=== PATIENT | female | born 1940 | race Caucasian/White ===

== ENCOUNTER 2018-05-22 00:10 | Emergency (ER) | payer OTHER ==
--- OUTSIDE RECORDS SUMMARY | 2018-05-22 00:13 | XMS REPORT | Clinical Summary ---
:1940 Author Organization [facility] Address [address] [place] [address] Care Team Providers Name Role Phone Percy Del Rosario Primary Care Provider Allergies Active Allergy Reactions Severity Noted Date Comments Latex 09/12/2017 Breakout with blisters Sulfa (Sulfonamide Antibiotics) 09/12/2017 Break out with blisters Hydrocodone-Acetaminophen 09/12/2017 Heart quit beating Medications Medication Sig Dispensed Refills Start Date End Date Status clopidogrel (PLAVIX) 75 Take 75 mg by 0 Active mg tablet mouth daily. aspirin 81 MG EC tablet Take 81 mg by 0 Active mouth daily. lisinopril Take 1.25 mg by 0 Active (PRINIVIL,ZESTRIL) 5 MG mouth daily . tablet Active Problems Not on file Encounters Date Type Specialty Care Team Description 09/12/2017 [facility] Carin, Breast microcalcifications Encounter Percy Tellez 09/06/2017 Outside Orders Central Scheduling Carin, Breast microcalcifications Percy Tellez (Primary Dx) after 05/21/2017 Social History Tobacco Use Types Packs/Day Years Used Date Former Smoker 20 Smokeless Tobacco: Never Used Alcohol Use Drinks/Week oz/Week Comments Yes 2 Glasses of wine 1.2 Sex Assigned at Date Recorded Not on file Job Start Date Occupation Industry Not on file Not on file Not on file Travel History Travel Start Travel End No recent travel history available. Last Filed Vital Signs Vital Sign Reading Time Taken Blood Pressure 148/74 09/12/2017 11:52 AM [facility] Pulse 69 09/12/2017 11:52 AM [facility] Temperature 36.2 C (97.1 F) 09/12/2017 10:19 AM [facility] Respiratory Rate 19 09/12/2017 11:52 AM [facility] Oxygen Saturation 99% 09/12/2017 10:19 AM [facility] Inhaled Oxygen Concentration - - Weight 72.6 kg (160 lb) 09/12/2017 10:19 AM [facility] Height 172.7 cm (5' 8") 09/12/2017 10:19 AM [facility] Body Mass Index 24.33 09/12/2017 10:19 AM [facility] Plan of Treatment Not on file Procedures Procedure Name Priority Date/Time Associated Diagnosis Comments TISSUE EXAM AP Routine 09/12/2017 Results for 1:35 PM [facility] this procedure are in the results section. MM BREAST SPECIMEN AURELIANO 09/12/2017 Results for RADIOGRAPH LEFT 11:42 AM [facility] this procedure are in the results section. MM, DIGITAL, Routine 09/12/2017 Results for UNILATERAL, CONFER 11:42 AM [facility] this procedure KATIUSKA, MAMMO, LEFT are in the results section. MM STEREOTACTIC Routine 09/12/2017 Breast Results for BREAST BIOPSY - 11:40 AM [facility] microcalcifications this procedure LEFT are in the results section. after 05/21/2017 Results Tissue Exam (09/12/2017 1:35 PM [facility]) Case Report Surgical Pathology Report Case: [id number] [facility] Authorizing Provider:Jose Mcgraw MDCollected: 09/12/2017 1335 [facility] Ordering [facility]'s CenterReceived: 09/12/2017 [facility] Pathologist: Saumya Garcia MD Specimen:Breast, Left, LEFT LOWER MEDIAL BREAST CALCIFICATIONS DIAGNOSIS A. BREAST, LEFT, LOWER MEDIAL CALCIFICATIONS, STEREOTACTIC BIOPSY: [facility] - BENIGN BREAST TISSUE WITH FAT NECROSIS [facility] - MICROCALCIFICATIONS ASSOCIATED WITH FAT NECROSIS IDENTIFIED Signing Pathologist Direct Phone Line: [phone] COMMENT Multiple levels (23 levels) [facility] have been evaluated to find [facility] calcifications. In the sections examined, no atypical hyperplasia or carcinoma is identified. CPT Code(s) 54103 x1 [facility] CLINICAL HISTORY Consistent with fat necrosis [facility] SPECIMEN SOURCE Left lower medial breast [facility] calcifications [facility] GROSS DESCRIPTION The specimen is received in a formalin-filled container and labeled with the patient's information and labeled "left lower medial breast calcifications" and consists of two yellow-white core breast biopsies measuring 1.5 and 2 cm in length. [facility] Ink code: blue. The specimen is entirely submitted A1. CG/pl MICROSCOPIC DESCRIPTION Performed. [facility] Specimen Tissue - Breast, Left Performing Organization Address City/State/Zipcode Phone Number [facility] [address] [place] [address] [phone] CENTER MM Breast Specimen Radiograph Left (09/12/2017 11:42 AM [facility]) Narrative Performed At [facility] #[id number] - MM, MAMMO, SPECIMEN, RADIOGRAPH, LEFT SPECIMEN: 09/12/2017 PROCEDURE DESCRIPTION: The specimen radiograph includes the targeted calcifications. Comparison is made to exams dated:09/12/2017 mammogram and 09/12/2017 stereotactic biopsy - [facility]. The specimen radiograph was performed on a separate mammography unit. IMPRESSION: SPECIMEN The specimen radiograph includes the targeted calcifications. The exam was reviewed by a staff physician. Jose Doshi M.D. pth,ac/:09/12/2017 12:44:55 Attending Technologist: Ngozi Marr RT(R)(M), [facility] Blender Conveyor Operator: Viky Cooley RT(R)(M), [facility] [id number] Procedure Note Interface, External Ris In - 09/12/2017 1:44 PM [facility] #[id number] - MM, MAMMO, SPECIMEN, RADIOGRAPH, LEFT SPECIMEN: 09/12/2017 PROCEDURE DESCRIPTION: The specimen radiograph includes the targeted calcifications. Comparison is made to exams dated: 09/12/2017 mammogram and 09/12/2017 stereotactic biopsy - [facility]. The specimen radiograph was performed on a separate mammography unit. IMPRESSION: SPECIMEN The specimen radiograph includes the targeted calcifications. The exam was reviewed by a staff physician. Jose Doshi M.D. [facility],ac/:09/12/2017 12:44:55 Attending Technologist: Ngozi BUSTOS)(Ariadna), [facility] Blender Conveyor Operator: Viky BUSTOS)(Ariadna), [facility] [id number] Performing Organization Address City/State/Zipcode Phone Number [facility] MM, DIGITAL, UNILATERAL, CONFER KATIUSKA, MAMMO, LEFT (09/12/2017 11:42 AM [facility]) Narrative Performed At N#: [id number] [facility] #[id number] - MM, DIGITAL, UNILATERAL, CONFER KATIUSKA, MAMMO, LEFT INCLUDING CAD UNILATERAL LEFT DIGITAL PROBLEM SOLVING MAMMOGRAM POST-PROCEDURE IMAGING FOR MARKER PLACEMENT: 09/12/2017 Comparison is made to exam dated:09/12/2017 stereotactic biopsy - [facility]. The tissue of the left breast is scattered fibroglandular tissue. The post procedure mammogram was performed on a separate mammography unit. A clip is placed at the biopsy site. IMPRESSION: POST PROCEDURE MAMMOGRAM FOR MARKER PLACEMENT Await pathology results. The exam was reviewed by a staff physician. Jose Doshi M.D. [facility],ac/:09/12/2017 12:44:16 Attending Technologist: Ngozi BUSTOS)(Ariadna), [facility] Blender Conveyor Operator: Viky BUSTOS)(Ariadna), [facility] Mammogram BI-RADS: Post-procedure mammogram for marker placement [id number] Procedure Note Interface, External Ris In - 09/12/2017 1:44 PM [facility] #[id number] - MM, DIGITAL, UNILATERAL, CONFER KATIUSKA, MAMMO, LEFT INCLUDING CAD UNILATERAL LEFT DIGITAL PROBLEM SOLVING MAMMOGRAM POST-PROCEDURE IMAGING FOR MARKER PLACEMENT: 09/12/2017 Comparison is made to exam dated: 09/12/2017 stereotactic biopsy - [facility]. The tissue of the left breast is scattered fibroglandular tissue. The post procedure mammogram was performed on a separate mammography unit. A clip is placed at the biopsy site. IMPRESSION: POST PROCEDURE MAMMOGRAM FOR MARKER PLACEMENT Await pathology results. The exam was reviewed by a staff physician. Jose Doshi M.D. [facility],ac/:09/12/2017 12:44:16 Attending Technologist: Ngozi Marr RT(R)(M), [facility] Blender Conveyor Operator: Viky Cooley RT(R)(M), [facility] Mammogram BI-RADS: Post-procedure mammogram for marker placement [id number] Performing Organization Address City/State/Zipcode Phone Number [facility] MM Stereotactic breast biopsy left (09/12/2017 11:40 AM [facility]) Narrative Performed At Addendum Begins [facility] AMENDMENT: 09/18/2017 Jose Mcgraw M.D. Pathology results are now available and demonstrate fat necrosis. This is concordant with the imaging findings. Addendum Ends #[id number] - MM, STEREOTACTIC BIOPSY, BREAST, LEFT STEREOTACTIC GUIDED BIOPSY LEFT BREAST USING VACUUM DEVICE WITH MARKING DEVICE INSERTED AND POST DIGITAL MAMMOGRAPHIC IMAGING AND RADIOGRAPHIC SPECIMEN IMAGIN09/12/2017 CLINICAL: Stereotactic biopsy of left breast calcifications. PATIENT CONSENT: The procedure, risks, benefits and alternatives were discussed with the patient. Informed consent was obtained. Comparison is made to exams dated:09/12/2017 specimen and 09/12/2017 mammogram - [facility]. A stereotactic guided biopsy was performed for the area of calcifications located in the left breast at 7 o'clock anterior depth.This was described on the previous mammography report.The skin was prepped in the usual manner.Local anesthetic was administered to the access site.A skin gayle was made in the breast. The abnormality was approached from the medial aspect using a prone table.A 9 gauge biopsy needle was placed adjacent to the abnormality under computer guidance and confirmatory stereotactic mammography images were obtained to document needle placement.Once the needle was documented to be in the correct location, two cores were obtained using the [employer] system.The patient received additional local anesthetic during the procedure.A bar shaped clip was inserted into the biopsy cavity.Post procedure digital mammographic imaging was obtained.The specimens were sent to the laboratory for pathological analysis. Dr. Mcgraw was present for the entire procedure. IMPRESSION: STEREOTACTIC GUIDED BIOPSY Stereotactic guided biopsy of the area of calcifications in the left breast at 7 o'clock anterior depth was successful with no apparent post procedure complications.The imaged cores includes the calcifications.Waiting for pathology results. The procedure was reviewed by a staff physician. Jose Doshi M.D. pth,ac/:09/12/2017 12:50:37 Attending Technologist: Ngozi Marr RT(R)(M), [facility] Blender Conveyor Operator: Viky Cooley RT(R)(M), [facility] [id number] Procedure Note Interface, External Ris In - 09/19/2017 7:25 AM CDT Addendum Begins AMENDMENT: 09/18/2017 Jose Mcgraw M.D. Pathology results are now available and demonstrate fat necrosis. This is concordant with the imaging findings. Addendum Ends #[id number] - MM, STEREOTACTIC BIOPSY, BREAST, LEFT STEREOTACTIC GUIDED BIOPSY LEFT BREAST USING VACUUM DEVICE WITH MARKING DEVICE INSERTED AND POST DIGITAL MAMMOGRAPHIC IMAGING AND RADIOGRAPHIC SPECIMEN IMAGIN09/12/2017 CLINICAL: Stereotactic biopsy of left breast calcifications. PATIENT CONSENT: The procedure, risks, benefits and alternatives were discussed with the patient. Informed consent was obtained. Comparison is made to exams dated: 09/12/2017 specimen and 09/12/2017 mammogram - [facility]. A stereotactic guided biopsy was performed for the area of calcifications located in the left breast at 7 o'clock anterior depth. This was described on the previous mammography report. The skin was prepped in the usual manner. Local anesthetic was administered to the access site. A skin gayle was made in the breast. The abnormality was approached from the medial aspect using a prone table. A 9 gauge biopsy needle was placed adjacent to the abnormality under computer guidance and confirmatory stereotactic mammography images were obtained to document needle placement. Once the needle was documented to be in the correct location, two cores were obtained using the [employer] system. The patient received additional local anesthetic during the procedure. A bar shaped clip was inserted into the biopsy cavity. Post procedure digital mammographic imaging was obtained. The specimens were sent to the laboratory for pathological analysis. Dr. Mcgraw was present for the entire procedure. IMPRESSION: STEREOTACTIC GUIDED BIOPSY Stereotactic guided biopsy of the area of calcifications in the left breast at 7 o'clock anterior depth was successful with no apparent post procedure complications. The imaged cores includes the calcifications. Waiting for pathology results. The procedure was reviewed by a staff physician. Jose Doshi M.D. [facility],ac/:09/12/2017 12:50:37 Attending Technologist: Ngozi SESAY(R)(M), [facility] Blender Conveyor Operator: Viky SESAY(R)(M), [facility] [id number] Performing Organization Address City/State/Zipcode Phone Number [facility] after 05/21/2017 Insurance Payer Benefit Plan / Group Subscriber ID Type Phone Address [facility] xxxxxxxxx Maps Contracted
--- OUTSIDE RECORDS SUMMARY | 2018-05-22 00:16 | XMS REPORT | Continuity of Care Document ---
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 OPERATOR, Stop date: 07/20/16 20:07:00 CSTNotes: (Same as: Zofran) MEDICATION WASTE Product Size: 4 mg Product Wasted: ___ mg Flexeril 5 mg, 1 tab, No Longer [place] Route: PO, Drug Active 2016 Medical form: TAB, TID, Center Dosing Weight 71.364, kg, PRN Spasm, Start date: 07/20/16 12:12:00 LASTEX OPERATOR, Duration: 30 day, Stop date: 08/19/16 12:11:00 CSTNotes: Same as Flexeril remove patch 2 patch, Route: No Longer [facility] TOP, Daily, Drug Active 2016 Medical form: ERFILM, Center Start date: 07/20/16 11:00:00 LASTEX OPERATOR, Stop date: 08/18/16 9:00:00 CSTNotes: Remove patch 12 hours after application each day. Sodium Chloride 1 spray, Route: No Longer [place] 0.111 MEQ/ML Each Affected 2016 Medical Nasal [place] Nostril, PRN, [place] [[place] brand of Drug form: SOLN, sodium PRN Nasal chloride] Congestion, Start date: 07/20/16 9:06:00 LASTEX OPERATOR, Duration: 30 day, Stop date: 08/19/16 9:05:00 CSTNotes: (Same as: [place], Deep Sea Nasal [place]). Docusate 100 mg, 10 mL, No Longer [place] Route: PO, Drug Active 2016 Medical form: SOLN, Center Q12H, Dosing Weight 71.364, kg, Start date: 07/20/16 9:00:00 LASTEX OPERATOR, Stop date: 08/18/16 21:00:00 CSTNotes: (Same as: Colace) Lidocaine 1 patch, Route: No Longer [place] Hydrochloride TOP, Bedtime, Active 2016 Medical 0.05 MG/MG Drug form: FILM, Center Transdermal Start date: Patch 07/19/16 [Lidoderm] 23:00:00 LASTEX OPERATOR, Stop date: 08/17/16 21:00:00 CSTNotes: (Same as: Lidoderm) "Remove old patch before application of new patch" Enoxaparin 30 mg, 0.3 mL, No Longer [facility] Route: SUB-Q, Active 2016 Medical Drug form: INJ, Center Q12H, Dosing Weight 71.364, kg, Start date: 07/19/16 22:23:00 LASTEX OPERATOR, Duration: 30 day, Stop date: 08/18/16 16:00:00 CSTNotes: (Same as: Lovenox) Sodium Chloride 500 mL, Route: No Longer [place] 0.154 MEQ/ML IV, ONCE, Dosing Active 2016 Medical Injectable Weight 71.364 Center Solution kg, Start date: 07/19/16 22:05:00 LASTEX OPERATOR, Stop date: 07/19/16 22:05:00 LASTEX OPERATOR Isolyte S (PH 1,000 mL, Rate: No Longer [place] 7.4) 1000 mL 75 ml/hr, Infuse Active 2017 Medical 1,000 mL over: 13.3 hr, Center Route: IV, Dosing Weight 71.364 kg, Total Volume: 1,000, Start date: 07/19/16 21:58:00 LASTEX OPERATOR, Duration: 30 day, Stop date: 08/18/16 21:57:00 CSTNotes: (Same as: Isolyte S PH 7.4) Oxycodone 5 mg, 1 tab, No Longer [place] Hydrochloride 5 Route: PO, Drug Active 2016 Medical MG Oral Tablet form: TAB, Q4H, Center Dosing Weight 71.364, kg, PRN Pain Score 4-6, Start date: 07/19/16 21:56:00 LASTEX OPERATOR, Duration: 30 day, Stop date: 08/18/16 21:55:00 CSTNotes: (Same as: Roxicodone) Tramadol 100 mg, 2 tab, No Longer [place] Route: PO, Drug Active 2016 Medical form: TAB, Q6H, Center Dosing Weight 71.364, kg, Priority: NOW, Start date: 07/19/16 21:56:00 LASTEX OPERATOR, Duration: 30 day, Stop date: 08/18/16 18:00:00 CSTNotes: Not to exceed 400mg/day. (Same As: Ultram) celecoxib 200 mg, 1 cap, No Longer [place] Route: PO, Drug Active 2016 Medical form: CAP, Q12H, Center Dosing Weight 71.364, kg, Priority: NOW, Start date: 07/19/16 21:56:00 LASTEX OPERATOR, Duration: 48 hr, Stop date: 07/21/16 21:00:00 CSTNotes: NSAID. Please check indication. Not for seizure. (Same As: CeleBREX) pregabalin 100 mg, 1 cap, No Longer [place] Route: PO, Drug Active 2016 Medical form: CAP, Q8H, Center Dosing Weight 71.364, kg, Priority: NOW, Start date: 07/19/16 21:56:00 LASTEX OPERATOR, Duration: 48 hr, Stop date: 07/21/16 16:00:00 CSTNotes: (Same as: Lyrica) Acetaminophen 1,000 mg, 2 tab, No Longer [facility] Route: PO, Drug Active 2016 Medical form: TAB, Q6H, Center Dosing Weight 71.364, kg, Priority: NOW, Start date: 07/19/16 21:56:00 LASTEX OPERATOR, Duration: 30 day, Stop date: 08/18/16 18:00:00 CSTNotes: Max acetaminophen 4000 mg/day (4 gm/day). (Same as: Tylenol Extra Strength) Vitamin D2 50,000 IntlUnit, Inactive [facility] 1 cap, Route: 2017 Medical PO, Drug form: Center CAP, ONCE, Dosing Weight 71.364, kg, Priority: Routine, Start date: 07/19/16 21:27:00 LASTEX OPERATOR, Stop date: 07/19/16 21:27:00 CSTNotes: (Same as: Vitamin D) "Do Not Crush" Morphine 4 mg, Route: Inactive [facility] IVP, Drug form: 2017 Medical INJ, ONCE, Center Dosing Weight 71.364, kg, Priority: STAT, Start date: 07/19/16 20:33:00 LASTEX OPERATOR, Stop date: 07/19/16 20:33:00 LASTEX OPERATOR Zofran 4 mg, 2 mL, Inactive [facility] Route: IVP, Drug 2016 Medical form: INJ, ONCE, Center Dosing Weight 71.364, kg, Priority: STAT, Start date: 07/19/16 19:42:00 LASTEX OPERATOR, Stop date: 07/19/16 19:42:00 CSTNotes: (Same as: Zofran) MEDICATION WASTE Product Size: 4 mg Product Wasted: ___ mg Propofol 30 mg, Route: Inactive [facility] IVP, ONCE, 2017 Medical Dosing Weight Center 71.364, kg, Priority: STAT, Start date: 07/19/16 18:39:00 LASTEX OPERATOR, Stop date: 07/19/16 18:39:00 LASTEX OPERATOR Ketamine 30 mg, Route: Inactive [facility] IV, ONCE, Dosing 2017 Medical Weight 71.364, Center kg, Start date: 07/19/16 18:39:00 LASTEX OPERATOR, Stop date: 07/19/16 18:39:00 LASTEX OPERATOR Fentanyl 50 microgram, Inactive [facility] Route: IVP, 2017 Medical ONCE, Dosing Center Weight 71.364, kg, Priority: STAT, Start date: 07/19/16 15:31:00 LASTEX OPERATOR, Stop date: 07/19/16 15:31:00 LASTEX OPERATOR Morphine 4 mg, Route: Inactive [facility] IVP, ONCE, 2017 Medical Dosing Weight Center 71.364, kg, Priority: STAT, Start date: 07/19/16 15:28:00 LASTEX OPERATOR, Stop date: 07/19/16 15:28:00 LASTEX OPERATOR Saline Flush 10 mL, Route: No Longer [facility] 0.9% MISC, Drug Form: Active 2017 Medical INJ, kg, PRN, Center PRN Line Flush, Start date: 07/19/16 13:31:00 LASTEX OPERATOR, Duration: 30 day, Stop date: 08/18/16 13:30:00 CSTNotes: (Same as: BD Posiflush) iodixanol 100 mL, Route: Inactive [facility] IVP, Drug Form: 2017 Medical SOLN, kg, Center ONCALL, STAT, Start date: 07/19/16 12:58:00 LASTEX OPERATOR, Duration: 1 doses or times, Dose=2.2ml/kg, Max [id number] -- "To be infused by Radiology Staff ONLY" Fentanyl 50 microgram, Inactive [facility] Route: IVP, 2017 Medical ONCE, kg, Center Priority: STAT, Start date: 07/19/16 12:55:00 LASTEX OPERATOR, Stop date: 07/19/16 12:55:00 LASTEX OPERATOR Allergies, Adverse Reactions, Alerts Substance Category Reaction Severity Reaction Status Date Comments Source type Reported sulfa Assertion Drug Active Ortho drugs allergy and Spine Tylenol Assertion Propensity Active patient Ortho with to adverse states she and Spine Codeine<cardoso reactions has jitters p>1</sup> to drug with this med Vicodin<cardoso Assertion Moderate Drug Active patient [facility] p>2</sup> allergy states and Spine heart quit beating when she took it NSAIDs<sup Assertion Propensity Active Avoids due [facility] >3</sup> to adverse to acid and Spine reactions reflux. to drug Latex<sup> Assertion Allergy to Active per [facility] 4</sup> substance patient, and Spine blisters, swells up contrast Assertion Drug Active Blisters [facility] media allergy and Spine (iodine-ba sed)<sup>5 </sup> traMADol<s Assertion Drug Active hallucinati [facility] up>6</sup> allergy ons and Spine oxyCODONE< Assertion Drug Active patient [facility] sup>7</sup allergy states and Spine > heart quit beating when she took it HYDROcodon Assertion Drug Active patient Ortho e<sup>8</s allergy states and Spine up> heart quit beating when she took it contrast Assertion Drug Active [facility] media allergy [place] (iodine-ba sed) HYDROcodon Assertion Drug Active patient e<sup>1</s allergy states [place] up> heart quit beating when she took it Latex<sup> Assertion Allergy to Active per MH 2</sup> substance patient, [place] blisters, swells up oxyCODONE< Assertion Drug Active patient [facility] sup>3</sup allergy states [place] > heart quit beating when she took it Tylenol Assertion Propensity Active patient with to adverse states she [place] Codeine<cardoso reactions has jitters p>4</sup> to drug with this med Vicodin<cardoso Assertion Moderate Drug Active patient p>5</sup> allergy states [place] heart quit beating when she took it Immunizations Immunization Date Given Site Status Last Updated Comments Source Results Order Name Results Value Reference Date Interpretation Comments Source Range Carotid Carotid Clinical Indication: - TIA 12/09 - artery artery /2016 - [facility] Doppler Doppler Comparison: None bilat US bilat US Read by: Frances Kelly DO Dictated Date/time: 12/10/16 10:25 TECHNIQUE: Electronically Signed by: Frances Kelly DO 12/10/16 10:30 FINAL REPORT Redd-scale, color Doppler and spectral Doppler of the carotid arteries was performed. Any reported ICA stenoses indirectly reference the distal internal carotid diameter as the denominator for the sten osis measurement, utilizing consensus panel criteria. FINDINGS: RIGHT: Mild atherosclerotic plaque at the carotid bulb ICA PSV 111 cm/sec CCA PSV 85.9 cm/sec ICA/CCA ratio 0.77 Vertebral flow is antegrade. External carotid artery is patent. LEFT: No significant plaque ICA PSV 97.5 cm/sec CCA PSV 108 cm/sec ICA/CCA ratio 0.85 Vertebral flow is antegrade. External carotid artery is patent. IMPRESSION: RIGHT: ICA stenosis <50 % by velocity criteria. LEFT: ICA stenosis <50 % by velocity criteria. Consensus panel Doppler US criteria for diagnosis of ICA stenosis: Stenosis (%) ICA PSV (cm/sec) ICA/CCA ratio -- <50 <125 <2.0 50-69 125-230 2.0-4.0 >70 but less than >230 >4.0 near occlusion Near occlusion High, low, or Variable undetectable SL: [id number] Brain wo Brain wo Patient Name: CLARY HERNÁNDEZ 12/09 - contrast contrast MRA /2016 - [facility] MRA : 1940; Age: 76 years y/o Female MR: [id number] Read by: Cheo Sánchez MD Dictated Date/time: 12/09/16 16:50 Electronically Signed by: Cheo Sánchez MD 12/09/16 16:56 FINAL REPORT Study: Brain wo contrast MRA 12/09/2016 11:43 AM CDT Ordering Physician: Val Damico Clinical Indication: generalized weakness - Right HP; Comparison: None Technique: Magnetic resonance angiography of the [place] of [place] was performed without contrast. 3D reconstructed images were created. FINDINGS: The petrous, cavernous, ophthalmic and supraclinoid portions of the bilateral internal carotid arteries have normal caliber. The A1 and A2 segments of the bilateral anterior cerebral arteries are unremarkable. The M1 and M2 segments of bilateral middle cerebral arteries and branches have normal caliber. The anterior communicating artery is unremarkable. Bilateral vertebral arteries, basilar artery, and posterior cerebral arteries are unremarkable. Posterior communicating arteries are unremarkable. There is no aneurysm, vascular malformation, or significant atherosclerotic disease. IMPRESSION: Unremarkable MR angiography of the [place] of [place]. SL: [id number] Neck wo Neck wo Patient Name: CLARY HERNÁNDEZ 12/09 - contrast contrast MRA /2016 - [facility] MRA : 1940; Age: 76 years y/o Female MR: [id number] Read by: Cheo Sánchez MD Dictated Date/time: 12/09/16 16:42 Electronically Signed by: Cheo Sánchez MD 12/09/16 16:49 FINAL REPORT Study: Neck wo contrast MRA 12/09/2016 11:43 AM CDT Ordering Physician: Val Damico Clinical Indication: generalized weakness - Right HP; Comparison: None Technique: Magnetic resonance angiography of the neck was performed without IV contrast and with standard technique. MIP and volume rendering post- processed images were obtained. 3D reconstructed images were performed. Contrast: None FINDINGS: The origins of the right brachiocephalic artery, right common carotid artery, right subclavian artery, right vertebral artery, left common carotid artery, left subclavian artery and left vertebral artery are widely patent. Bilateral common carotid arteries are widely patent. Bilateral internal carotid arteries and carotid bulb regions are patent without significant stenosis by NASCET criteria. Bilateral external carotid arteries are patent. Bilateral vertebral arteries are widely patent without stenosis. The visualized intracranial segments of the vertebral arteries are widely patent. The source images show no evidence of carotid or vertebral artery dissection. Any reported ICA stenoses directly reference the distal internal carotid diameter as the denominator for stenosis measurement. (NASCET criteria.) IMPRESSION: Unremarkable MRA of the neck. No significant carotid arterial stenosis by NASCET criteria. No significant vertebral artery stenosis. SL: [id number] CHEM PANEL eGFR 73 12/09 Result Comment: The eGFR is calculated using the CKD-EPI formula. In most young, healthy individuals the eGFR will be >90 mL/ min/1.73m2. The eGFR declines with age. An eGFR of 60-89 may be normal in /min/1. some populations, particularly the elderly, for whom the CKD-EPI formula has not been extensively validated. Use of the eGFR is not recommended in the following populations: [place] [id number] Individuals with unstable creatinine concentrations, including patients and those with serious co-morbid conditions. Patients with extremes in muscle mass or diet. The data above are obtained from the National Kidney Disease Education Program (NKDEP) which additionally recommends that when the eGFR is used in patients with extremes of body mass index for purposes of drug dosing, the eGFR should be multiplied by the estimated BMI. CHEM PANEL Glucose Lvl 89 mg/dL 70 - 99 / [facility] CHEM PANEL Chloride Lvl 109 meq/L 95 - 109 12/09 [facility] CHEM PANEL AGAP 12.9 meq/L 10.0 - 12/09 MH 20.0 [facility] CHEM PANEL CO2 25 meq/L 24 - 32 12/09 [facility] CHEM PANEL Potassium 3.9 meq/L 3.5 - 5.1 / MH Lvl /2016 [facility] CHEM PANEL Sodium Lvl 143 meq/L 135 - 145 12/09 [facility] CHEM PANEL Calcium Lvl 9.0 mg/dL 8.5 - 10.5 12/09 [facility] CHEM PANEL Creatinine 0.80 mg/dL 0.50 - 12/09 Lvl 1.40 [facility] CHEM PANEL BUN 19 mg/dL 7 - 22 12/09 [facility] HEMATOLOGY Platelet 179 K/CMM 133 - 450 06 [facility] MCH 32.6 pg 27.0 - 12/09 MH 31.0 [facility] HEMATOLOGY MCV 93.4 fL 80.0 - 12/09 MH 98.0 [facility] HEMATOLOGY RDW 13.4 % 11.5 - 12/09 MH 14.5 [facility] HEMATOLOGY MCHC 34.9 g/dL 32.0 - 12/09 MH 36.0 [facility] HEMATOLOGY MPV 9.0 fL 7.4 - 10.4 12/09 [facility] HEMATOLOGY Hgb 11.7 g/dL 12.0 - 12/09 MH 16.0 [facility] HEMATOLOGY RBC 3.59 M/CMM 4.20 - 06 MH 5.40 [facility] HEMATOLOGY WBC 5.2 K/CMM 3.7 - 10.4 12/09 [facility] HEMATOLOGY Hct 33.6 % 36.0 - 12/09 MH 48.0 [facility] Lymphocytes 25.1 % 20.0 - 06 MH 40.0 [facility] HEMATOLOGY Eosinophils 2.7 % 0.0 - 4.0 12/09 [place] HEMATOLOGY Monocytes 8.5 % 2.0 - 12.0 / /2016 [facility] HEMATOLOGY Segs-Bands # 3.3 K/CMM 1.5 - 8.1 12/09 [facility] HEMATOLOGY Basophils 0.5 % 0.0 - 1.0 12/09 /2016 [facility] HEMATOLOGY Monocytes # 0.4 K/CMM 0.0 - 0.8 12/09 /2016 [facility] HEMATOLOGY Lymphocytes 1.3 K/CMM 1.0 - 5.5 12/09 MH # /2016 [facility] HEMATOLOGY Eosinophils 0.1 K/CMM 0.0 - 0.5 12/09 # /2016 [facility] HEMATOLOGY Segs 63.2 % 45.0 - 12/09 75.0 /2016 [facility] LIPIDS CHD Risk 3.90 3.90 - 12/09 5.80 /2016 [facility] LIPIDS LDL 101 mg/dL <=99 mg/dL 12/09 (Calculated) [facility] LIPIDS VLDL 41 12/09 [facility] LIPIDS HDL 49 mg/dL >=61 mg/dL 12/09 [facility] LIPIDS Chol 191 mg/dL <=199 12/09 mg/dL [facility] LIPIDS Trig 207 mg/dL <=149 12/09 mg/dL [facility] SPECIAL Hgb A1C 4.7 % <=5.6 % 12/09 CHEMISTRY /2016 [facility] CHEM PANEL Phosphorus 3.1 mg/dL 2.5 - 4.5 12/08 [facility] CHEM PANEL Magnesium 1.9 mg/dL 1.8 - 2.4 12/08 Lvl [facility] ELECTROLYT AGAP 10.9 meq/L 10.0 - 12/08 ES 20.0 [facility] ELECTROLYT B/C Ratio 22 6 - 25 12/08 ES [facility] ELECTROLYT A/G Ratio 1.1 0.7 - 1.6 12/08 ES [facility] ELECTROLYT Globulin 3.3 g/dL 2.7 - 4.2 12/08 ES [facility] ELECTROLYT eGFR 63 12/08 Result Comment: The eGFR is calculated using the CKD-EPI formula. In most young, healthy individuals the eGFR will be >90 mL/ min/1.73m2. The eGFR declines with age. An eGFR of 60-89 may be normal in mL/min/1.7 /2016 some populations, particularly the elderly, for whom the CKD-EPI formula has not been extensively validated. Use of the eGFR is not recommended in the following populations: [facility] 3m2 Individuals with unstable creatinine concentrations, including patients and those with serious co-morbid conditions. Patients with extremes in muscle mass or diet. The data above are obtained from the National Kidney Disease Education Program (NKDEP) which additionally recommends that when the eGFR is used in patients with extremes of body mass index for purposes of drug dosing, the eGFR should be multiplied by the estimated BMI. ELECTROLYT Calcium Lvl 9.0 mg/dL 8.5 - 10.5 12/08 [facility] ELECTROLYT Total 7.0 g/dL 6.4 - 8.4 12/08 ES Protein [place] ELECTROLYT Albumin Lvl 3.7 g/dL 3.5 - 5.0 12/08 [facility] ELECTROLYT ALT 27 unit/L 0 - 65 12/08 [facility] ELECTROLYT Alk Phos 83 unit/L 39 - 136 12/08 [facility] ELECTROLYT AST 11 unit/L 0 - 37 12/08 [facility] ELECTROLYT Bili Total 0.4 mg/dL 0.2 - 1.3 12/08 [facility] ELECTROLYT Creatinine 0.90 mg/dL 0.50 - 12/08 ES Lvl 1.40 [facility] ELECTROLYT BUN 20 mg/dL 7 - 22 12/08 [facility] ELECTROLYT Sodium Lvl 142 meq/L 135 - 145 12/08 [facility] ELECTROLYT Chloride Lvl 108 meq/L 95 - 109 12/08 [facility] ELECTROLYT Potassium 3.9 meq/L 3.5 - 5.1 12/08 ES Lvl [facility] ELECTROLYT CO2 27 meq/L 24 - 32 12/08 [facility] ELECTROLYT Glucose Lvl 147 mg/dL 70 - 99 12/08 [facility] HEMATOLOGY PTT 32.2 s 22.9 - 12/08 MH 35.8 /2016 [facility] HEMATOLOGY PT 14.0 s 12.0 - 12/08 14.7 /2016 [facility] HEMATOLOGY INR 1.06 0.85 - 12/08 MH 1.17 [facility] HEMATOLOGY WBC 5.4 K/CMM 3.7 - 10.4 12/08 [facility] HEMATOLOGY Hgb 12.0 g/dL 12.0 - 12/08 MH 16.0 /2016 [facility] HEMATOLOGY RBC 3.67 M/CMM 4.20 - 12/08 MH 5.40 /2017 [facility] HEMATOLOGY Hct 34.6 % 36.0 - 12/08 MH 48.0 /2016 [facility] MCV 94.2 fL 80.0 - 12/08 MH 98.0 /2016 [facility] MCHC 34.7 g/dL 32.0 - 12/08 MH 36.0 /2016 [facility] MCH 32.7 pg 27.0 - 12/08 MH 31.0 /2016 [facility] Platelet 186 K/CMM 133 - 450 12/08 /2016 [facility] RDW 13.4 % 11.5 - 12/08 MH 14.5 /2016 [facility] MPV 8.9 fL 7.4 - 10.4 12/08 [facility] Monocytes # 0.3 K/CMM 0.0 - 0.8 12/08 [facility] HEMATOLOGY Segs 74.5 % 45.0 - 12/08 MH 75.0 /2016 [facility] Monocytes 5.5 % 2.0 - 12.0 12/08 [facility] Lymphocytes 18.8 % 20.0 - 12/08 MH 40.0 /2016 [facility] Segs-Bands # 4.0 K/CMM 1.5 - 8.1 12/08 [facility] Lymphocytes 1.0 K/CMM 1.0 - 5.5 12/08 MH # /2016 [facility] Eosinophils 0.8 % 0.0 - 4.0 12/08 [facility] Basophils 0.4 % 0.0 - 1.0 12/08 [facility] Brain wo Brain wo EXAM: MRI BRAIN WITHOUT CONTRAST 12/08 contrast contrast MRI /2016 [facility] MRI DATE: 12/08/2016 1:18 PM CDT Read by: Teja Goyal MD Dictated Date/time: 12/08/16 18:05 Electronically Signed by: Teja Goyal MD 12/08/16 18:13 FINAL REPORT INDICATION: Transient ischemic attack. COMPARISON: CT brain dated 07/19/2016. TECHNIQUE: Multiplanar, multisequence MRI imaging of the brain was acquired without intravenous contrast. FINDINGS: No acute intracranial hemorrhage, midline shift, or mass effect is identified. Minimal chronic microangiopathic changes are identified. The ventricles and sulci are within normal limits, without evidenc e for hydrocephalus. No evidence for restricted diffusion is present to suggest an acute infarct. Multiple linear areas of gradient susceptibility artifact are noted within the left frontal and parietal lobes sulci, most pronounced on series 11 image 16. An additional punctate area of gradient stability artifact is noted along the posterior aspect of the cristina/anterior 4th ventricle, series 11 image 8. The orbits, paranasal sinuses, and mastoid air cells are unremarkable. The major intracranial flow voids are maintained. IMPRESSION: 1. No acute intracranial ischemia or infarction. 2. Multiple linear areas of gradient susceptibility artifact within the left frontal and parietal lobe sulci. Findings are concerning for possible age- indeterminate subarachnoid hemorrhage although is p resent, these findings are favored to be chronic given that no associated FLAIR signal abnormality or intrinsic T1 signal is visualized. Other differential considerations include a vascular malformation . CT brain and dedicated vascular imaging is recommended for further evaluation. SL: [id number] MOLECULAR C difficile Negative Negative 07/27 [facility] DIAGNOSTIC DNA [facility] (07/27/16 11:27 AM) [place] ELECTROLYT AGAP 12.4 meq/L 10.0 - 07/25 [facility] .0 [facility] ELECTROLYT Glucose Lvl 120 mg/dL 70 - 99 07/25 [facility] ELECTROLYT eGFR 89 07/25 Result Comment: The eGFR is calculated using the CKD-EPI formula. In most young, healthy individuals the eGFR will be >90 mL/ min/1.73m2. The eGFR declines with age. An eGFR of 60-89 may be normal in [facility] mL/min/1.7 some populations, particularly the elderly, for whom the CKD-EPI formula has not been extensively validated. Use of the eGFR is not recommended in the following populations: [address] Individuals with unstable creatinine concentrations, including patients and those with serious co-morbid conditions. Patients with extremes in muscle mass or diet. The data above are obtained from the National Kidney Disease Education Program (NKDEP) which additionally recommends that when the eGFR is used in patients with extremes of body mass index for purposes of drug dosing, the eGFR should be multiplied by the estimated BMI. ELECTROLYT CO2 26 meq/L 24 - 32 07/25 [facility] ELECTROLYT Calcium Lvl 9.4 mg/dL 8.5 - 10.5 07/25 [facility] ELECTROLYT BUN 17 mg/dL 7 - 22 07/25 [facility] ELECTROLYT Creatinine 0.62 mg/dL 0.50 - 07/25 [facility] Lvl 1.40 [facility] ELECTROLYT Potassium 3.4 meq/L 3.5 - 5.1 07/25 [facility] ES Lvl /2016 [facility] ELECTROLYT Chloride Lvl 107 meq/L 95 - 109 07/25 [facility] ELECTROLYT Sodium Lvl 142 meq/L 135 - 145 07/25 [facility] HEMATOLOGY MPV 8.5 fL 7.4 - 10.4 07/25 [facility] HEMATOLOGY Platelet 191 K/CMM 133 - 450 07/25 [facility] HEMATOLOGY WBC 10.3 K/CMM 3.7 - 10.4 07/25 [facility] HEMATOLOGY Hgb 9.4 g/dL 12.0 - 07/25 16.0 [facility] HEMATOLOGY RBC 2.87 M/CMM 4.20 - 07/25 5.40 [facility] HEMATOLOGY MCH 32.8 pg 27.0 - 07/25 31.0 [facility] HEMATOLOGY MCV 96.0 fL 80.0 - 07/25 98.0 [facility] HEMATOLOGY Hct 27.5 % 36.0 - 07/25 48.0 [facility] HEMATOLOGY MCHC 34.1 g/dL 32.0 - 07/25 36.0 [facility] HEMATOLOGY RDW 12.7 % 11.5 - 07/25 [place] 14.5 [facility] HEMATOLOGY Monocytes # 1.2 K/CMM 0.0 - 0.8 07/25 [facility] HEMATOLOGY Eosinophils 0.1 K/CMM 0.0 - 0.5 07/25 [place] # /2016 [facility] HEMATOLOGY Segs 79.1 % 45.0 - 07/25 [place] 75.0 [facility] HEMATOLOGY Lymphocytes 7.9 % 20.0 - 07/25 [place] 40.0 [facility] HEMATOLOGY Monocytes 11.9 % 2.0 - 12.0 07/25 [facility] HEMATOLOGY Basophils 0.2 % 0.0 - 1.0 07/25 [facility] HEMATOLOGY Segs-Bands # 8.2 K/CMM 1.5 - 8.1 07/25 [facility]2016 [facility] HEMATOLOGY Eosinophils 0.9 % 0.0 - 4.0 07/25 [facility]2016 [facility] HEMATOLOGY Lymphocytes 0.8 K/CMM 1.0 - 5.5 07/25 [facility] URINE AND UA <=1.0 0.1 - 1.0 07/25 [facility] Urobilinogen mg/dL [facility] URINE AND UA Ketones TR 07/25 [facility] [address] [place] [address] URINE AND UA Sq Epi None Seen 07/[address] URINE AND UA Blood Negative Negative 07/25 [facility] (07/24/16 6:58 PM) [place] URINE AND UA Nitrite Negative Negative 07/25 [facility] (07/24/16 6:58 PM) [place] URINE AND UA Leuk Est Large Negative 07/25 [facility] *ABN* [place] (07/24/16 6:58 PM) URINE AND UA Bacteria Few /HPF None Seen 07/25 [facility] /HPF [facility] URINE AND UA WBC 11 /HPF 0 - 5 07/[address] URINE AND UA RBC 1 /HPF 0 - 2 07/25 [facility]2016 [facility] URINE AND UA Protein 20 mg/dL Negative 07/25 [facility] mg/dL [facility] URINE AND UA Spec Grav 1.018 <=1.030 07/[address] URINE AND UA pH 6.5 5.0 - 8.0 07/25 [facility] URINE AND UA Turbidity Clear Clear 07/25 [facility] (07/24/16 6:58 PM) [place] URINE AND UA Glucose Negative Negative 07/25 [facility] mg/dL mg/dL [facility] URINE AND UA Bili Negative Negative 07/25 [facility] *NA* [place] (07/24/16 6:58 PM) URINE AND UA Color Yellow Yellow 07/25 [facility] *NA* [place] (07/24/16 6:58 PM) Abdomen AP Abdomen AP EXAM: XR ABDOMEN 1 VIEW 07/24 - [facility] DX DX /2016 - [facility] DATE: 07/24/2016 Read by: Beth Calle MD Dictated Date/time: 07/25/16 11:40 Electronically Signed by: Beth Calle MD 07/25/16 11:43 FINAL REPORT INDICATION: Abdominal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
--- OUTSIDE RECORDS SUMMARY | 2018-05-22 00:18 | XMS REPORT ---
:1940 [facility] Address [address] [place] [address] [address]. [address] [place] [address] Care Team Providers Name Role Phone ANEL VILLATORO Unavailable Unavailable Problems This patient has no known problems. Allergies, Adverse Reactions, Alerts This patient has no known allergies or adverse reactions. Medications This patient has no known medications. Results Test Description Test Time Test Comments Text Results Atomic Results Result Comments MM, STEREOTACTIC 2017-09-18 Reason for Addendum BeginsMRN#: BIOPSY, BREAST, 15:28:00 Exam:->microcalcifications [id number]: LEFT 09/18/2017 Jose Mcgraw M.D. Pathology results are now available and demonstrate fat necrosis.This is concordant with the imaging findings. Addendum EndsMRN#: [id number] - MM, STEREOTACTIC BIOPSY, BREAST, LEFTSTEREOTACTIC GUIDED BIOPSY LEFT BREAST USING VACUUM DEVICE WITH MARKING DEVICE INSERTED AND POST DIGITAL MAMMOGRAPHIC IMAGING AND RADIOGRAPHIC SPECIMEN IMAGIN09/12/2017CLINICAL: Stereotactic biopsy of left breast calcifications. PATIENT CONSENT: The procedure, risks, benefits and alternatives were discussed with the patient. Informed consent was obtained. Comparison is made to exams dated: 09/12/2017 specimen and 09/12/2017 mammogram - [facility]. A stereotactic guided biopsy was performed for [...] location, two cores were obtained using the Kitenga system. The patient received additional local anesthetic during the procedure. A bar shaped clip was inserted into the biopsy cavity. Post procedure digital mammographic imaging was obtained. The specimens were sent to the laboratory for pathological analysis. Dr. Mcgraw was present for the entire procedure. IMPRESSION: STEREOTACTIC GUIDED BIOPSYStereotactic guided biopsy of the area of calcifications in the left breast at 7 o'clock anterior depth was successful with no apparent post procedure complications. The imaged cores includes the calcifications. Waiting for pathology results. The procedure was reviewed by a staff physician. Jose Doshi M.D.formerly [facility],ac/:09/12/2017 12:50:37 Attending Technologist: Ngozi Marr RT(R)(M), [facility] Binder And Wrapper Packer: Viky Cooley RT(R)(M), [facility] [id number] UE EXAM 2017-09-17 Surgical Pathology 12:41:00 Report Case: [id number] Authorizing Provider: Jose Mcgraw MD Collected: 09/12/2017 1335 Ordering Location: [facility] [place] Received: 09/12/2017 1336 Pathologist: Saumya Garcia MD Specimen: Breast, Left, LEFT LOWER MEDIAL BREAST CALCIFICATIONS A. BREAST, LEFT, LOWER MEDIAL CALCIFICATIONS, STEREOTACTIC BIOPSY: - BENIGN BREAST TISSUE WITH FAT NECROSIS - MICROCALCIFICATIONS ASSOCIATED WITH FAT NECROSIS IDENTIFIED Signing Pathologist Direct Phone Line: [phone] lly signed by Saumya Garcia MD on 09/17/2017 at 12:41 PMMultiple levels (23 levels) have been evaluated to find calcifications. In the sections examined, no atypical hyperplasia or carcinoma is identified.[id number] with fat necrosisLeft lower medial breast calcificationsThe specimen is received in a formalin-filled container and labeled with the patient's information and labeled "left lower medial breast calcifications" and consists of two yellow-white core breast biopsies measuring 1.5 and 2 cm in length. Ink code: blue.The specimen is entirely submitted A1. CG/pl Performed. MM, DIGITAL, 2017-09-12 Left breast calcifications #[id number] UNILATERAL, 12:44:00 - MM, DIGITAL, CONFER KATIUSKA, UNILATERAL, CONFER MAMMO, LEFT KATIUSKA, MAMMO, LEFT INCLUDING CAD INCLUDING CADUNILATERAL LEFT DIGITAL PROBLEM SOLVING MAMMOGRAM POST-PROCEDURE IMAGING FOR MARKER PLACEMENT: 09/12/2017Comparison is made to exam dated: 09/12/2017 stereotactic biopsy - [facility]. The tissue of the left breast is scattered fibroglandular tissue. The post procedure mammogram was performed on a separate mammography unit.A clip is placed at the biopsy site. IMPRESSION: POST PROCEDURE MAMMOGRAM FOR MARKER PLACEMENTAwait pathology results. The exam was reviewed by a staff physician. Jose Doshi M.D.formerly [facility],ac/:09/12/2017 12:44:16 Attending Technologist: Ngozi Marr RT(R)(M), [facility] Binder And Wrapper Packer: Viky Cooley RT(R)(M), [facility] Mammogram BI-RADS: Post-procedure mammogram for marker placement [id number] , MAMMO, 2017-09-12 Reason for exam:->Left breast #[id number] SPECIMEN, 12:44:00 calcifications - MM, MAMMO, SPECIMEN, RADIOGRAPH, LEFT RADIOGRAPH, LEFTSPECIMEN: 09/12/2017PROCEDURE DESCRIPTION: The specimen radiograph includes the targeted calcifications. Comparison is made to exams dated: 09/12/2017 mammogram and 09/12/2017 stereotactic biopsy - [facility]. The specimen radiograph was performed on a separate mammography unit.IMPRESSION: SPECIMENThe specimen radiograph includes the targeted calcifications. The exam was reviewed by a staff physician. Jose Doshi M.D.formerly [facility],ac/:09/12/2017 12:44:55 Attending Technologist: Ngozi SESAY(R)(M), [facility] Binder And Wrapper Packer: Viky SESAY(R)(M), [facility] [id number]
[2018-05-22 01:10] LABS: Absolute Lymphocytes (CBC) 1.5 K/uL (0.7-4.9); Absolute Monocytes 0.4 K/uL (0.1-1.3); Absolute Neutrophil 3.1 K/uL (1.8-8.0); Basophils % 0.7 % (0-1.3); Eosinophils % 2.7 % (0-4.4); Hematocrit 37.9 % (36.0-45.0); Lymphocytes % 29.2 % (15.3-44.8); MCH 33.5 pg (27.0-35.0); MCV 96.5 fL (80-100); MPV 9.4 fL (7.6-11.3); RBC Red Blood Cell Count 3.92 M/uL (3.86-4.86)
[2018-05-22 01:12] LABS: Protime INR 1.03
[2018-05-22 01:27] LABS: ALT/SGPT 35 U/L (12-78); AST/SGOT 27 U/L (15-37); Albumin 3.8 g/dL (3.4-5.0); Alkaline Phosphatase 85 U/L (45-117); BUN Blood Urea Nitrogen 18 mg/dL (7-18); Bicarbonate 26 mmol/L (21-32); Bilirubin Direct 0.1 mg/dL (0-0.2); Bilirubin Total 0.4 mg/dL (0.2-1.0); Glucose Level 105 mg/dL (74-106); Magnesium 1.8 mg/dL (1.8-2.4); NT PRO-BNP 320 pg/mL (<450); Potassium 3.4 mmol/L (3.5-5.1); Protein, Total 7.1 g/dL (6.4-8.2); Sodium Level 144 mmol/L (136-145); Troponin (Emerg Dept Use Only) < 0.02 ng/mL (0.0-0.045)
--- NOTE | 2018-05-22 02:27 | ER ---
Nurse's Notes [facility] Name: Fouzia Miranda Age: 78 yrs Sex: Female : 1940 Arrival Date: 05/22/2018 Time: 00:13 Bed 7 Private MD: Diagnosis: Essential (primary) hypertension Presentation: 05/22 00:18 Presenting complaint: Patient states: she has a hx of HTN and takes lisinopril but her aa1 BP has been running high for the past 2-3 days even with her medication. Also c/o CANTRELL. Transition of care: patient was not received from another setting of care. Onset of symptoms was May 19, 2018. Risk Assessment: Do you want to hurt yourself or someone else? Patient reports no desire to harm self or others. Initial Sepsis Screen: Does the patient meet any 2 criteria? No. Patient's initial sepsis screen is negative. Does the patient have a suspected source of infection? No. Patient's initial sepsis screen is negative. Care prior to arrival: None. 00:18 Method Of Arrival: Ambulatory aa1 00:18 Acuity: ANGELITO 3 aa1 Triage Assessment: 00:22 General: Appears in no apparent distress. comfortable, Behavior is calm, cooperative, aa1 appropriate for age. Historical: - Allergies: 00:22 hydrocodone bitartrate; aa1 00:22 Iodine; aa1 00:22 Latex, Natural Rubber; aa1 00:22 Levofloxacin; aa1 00:22 METRONIDAZOLE; aa1 00:22 PENICILLINS; aa1 00:22 Sulfa (Sulfonamide Antibiotics); aa1 00:22 tramadol; aa1 - Home Meds: 00:22 Albuterol Inhl [Active]; Alprazolam Oral [Active]; Aspirin Oral [Active]; atorvastatin aa1 Oral [Active]; clopidogrel Oral [Active]; Folic Acid Oral [Active]; lansoprazole Oral [Active]; lisinopril Oral [Active]; lysine Oral [Active]; - PMHx: 00:22 CVA; Hypertension; Anxiety; aa1 - PSHx: 00:22 Hysterectomy; aa1 - Immunization history:: Flu vaccine is not up to date. - Social history:: Smoking status: Patient/guardian denies using tobacco. - Ebola Screening: : No symptoms or risks identified at this time. Screenin:35 Abuse screen: Denies threats or abuse. Nutritional screening: No deficits noted. tl2 Tuberculosis screening: No symptoms or risk factors identified. Fall Risk None identified. Assessment: 00:33 General: Appears in no apparent distress. uncomfortable, Behavior is calm, cooperative, tl2 appropriate for age. Pain: Complains of pain in headache Pain does not radiate. Neuro: Level of Consciousness is awake, alert, obeys commands, Oriented to person, place, time, situation, Denies dizziness, numbness. Cardiovascular: Denies chest pain. Respiratory: Airway is patent Respiratory effort is even, unlabored, Respiratory pattern is regular, symmetrical. GI: No signs and/or symptoms were reported involving the gastrointestinal system. : No signs and/or symptoms were reported regarding the genitourinary system. Derm: Skin is pink, warm \T\ dry. 01:30 Reassessment: Patient appears in no apparent distress at this time. Patient and/or tl2 family updated on plan of care and expected duration. Pain level reassessed. Patient is alert, oriented x 3, equal unlabored respirations, skin warm/dry/pink. Patient states feeling better. 02:57 Reassessment: Patient appears in no apparent distress at this time. Patient and/or tl2 family updated on plan of care and expected duration. Pain level reassessed. Patient is alert, oriented x 3, equal unlabored respirations, skin warm/dry/pink. Pt verbalized understanding of discharge instructions, need for follow up. Vital Signs: 00:22 BP 230 / 81; Pulse 75; Resp 18; Temp 97.9; Pulse Ox 97% on R/A; Weight 73.94 kg; Height aa1 5 ft. 8 in. (172.72 cm); Pain 6/10; 00:35 BP 186 / 85; Pulse 72; Resp 23; Pulse Ox 99% on R/A; tl2 01:29 BP 176 / 85; Pulse 66; Resp 19; Pulse Ox 98% on R/A; tl2 01:49 BP 177 / 79; Pulse 63; Resp 20; Pulse Ox 98% on R/A; tl2 02:57 BP 176 / 82; Pulse 66; Resp 13; Pulse Ox 98% on R/A; tl2 00:22 Body Mass Index 24.78 (73.94 kg, 172.72 cm) aa1 Vitals: 00:35 Cardiac Rhythm Assessment Sinus rhythm. tl2 ED Course: 00:13 Patient arrived in ED. ds1 00:19 Triage completed. aa1 00:22 Arm band placed on right wrist. Patient placed in an exam room, on a stretcher. aa1 00:33 Aida Pool, RN is Primary Nurse. tl2 00:35 Patient has correct armband on for positive identification. Bed in low position. Call tl2 light in reach. Side rails up X 1. Adult w/ patient. 00:35 Inserted saline lock: 20 gauge in right antecubital area, using aseptic technique. tl2 Blood collected. 00:51 EKG done, by ED staff, reviewed by Munir Ba MD. ds4 00:54 Munir Ba MD is Attending Physician. gs 01:08 X-ray completed. Portable x-ray completed in exam room. Patient tolerated procedure kw well. 01:09 XRAY Chest (1 view) In Process Unspecified. EDMS 02:57 No provider procedures requiring assistance completed. IV discontinued, intact, tl2 bleeding controlled, No redness/swelling at site. Pressure dressing applied. Administered Medications: No medications were administered Outcome: 02:26 Discharge ordered by . gs 02:57 Discharged to home ambulatory, with family. tl2 02:57 Condition: stable 02:57 Discharge instructions given to patient, Instructed on discharge instructions, follow up and referral plans. Demonstrated understanding of instructions, follow-up care. 03:03 Patient left the ED. tl2 Signatures: Dispatcher [employer] EDLA Elly Red RN RN aa1 Ximena Rodriguez ds1 Diane Henriquez Donovan ds4 Aida Pool RN RN tl2 Munir Ba MD MD Corrections: (The following items were deleted from the chart) 00:34 00:33 Neuro: Level of Consciousness is awake, alert, obeys commands, Oriented to tl2 person, place, time, situation, tl2
--- NOTE | 2018-05-22 02:27 | EDPHYS ---
Physician Documentation [facility] Name: Fouzia Miranda Age: 78 yrs Sex: Female : 1940 Arrival Date: 05/22/2018 Time: 00:13 Bed 7 Private MD: ED Physician Munir Ba HPI: 05/22 02:25 This 78 yrs old Female presents to ER via Ambulatory with complaints of High gs Blood Pressure. 02:25 Onset: The symptoms/episode began/occurred 3 day(s) ago. Associated signs and symptoms: gs Pertinent negatives: chest pain, dyspnea, headache. Severity of symptoms: At its worst the blood pressure was moderate, in the emergency department the blood pressure is improved, mildly. The patient has experienced similar episodes in the past, a few times. Historical: - Allergies: 00:22 hydrocodone bitartrate; aa1 00:22 Iodine; aa1 00:22 Latex, Natural Rubber; aa1 00:22 Levofloxacin; aa1 00:22 METRONIDAZOLE; aa1 00:22 PENICILLINS; aa1 00:22 Sulfa (Sulfonamide Antibiotics); aa1 00:22 tramadol; aa1 - Home Meds: 00:22 Albuterol Inhl [Active]; Alprazolam Oral [Active]; Aspirin Oral [Active]; atorvastatin aa1 Oral [Active]; clopidogrel Oral [Active]; Folic Acid Oral [Active]; lansoprazole Oral [Active]; lisinopril Oral [Active]; lysine Oral [Active]; - PMHx: 00:22 CVA; Hypertension; Anxiety; aa1 - PSHx: 00:22 Hysterectomy; aa1 - Immunization history:: Flu vaccine is not up to date. - Social history:: Smoking status: Patient/guardian denies using tobacco. - Ebola Screening: : No symptoms or risks identified at this time. ROS: 02:25 All other systems are negative. gs Exam: 02:25 Head/Face: Normocephalic, atraumatic. Eyes: Pupils equal round and reactive to light, gs extra-ocular motions intact. Lids and lashes normal. Conjunctiva and sclera are non-icteric and not injected. Cornea within normal limits. Periorbital areas with no swelling, redness, or edema. ENT: Nares patent. No nasal discharge, no septal abnormalities noted. Tympanic membranes are normal and external auditory canals are clear. Oropharynx with no redness, swelling, or masses, exudates, or evidence of obstruction, uvula midline. Mucous membranes moist. Neck: Trachea midline, no thyromegaly or masses palpated, and no cervical lymphadenopathy. Supple, full range of motion without nuchal rigidity, or vertebral point tenderness. No Meningismus. Chest/axilla: Normal chest wall appearance and motion. Nontender with no deformity. No lesions are appreciated. Cardiovascular: Regular rate and rhythm with a normal S1 and S2. No gallops, murmurs, or rubs. Normal PMI, no JVD. No pulse deficits. Respiratory: Lungs have equal breath sounds bilaterally, clear to auscultation and percussion. No rales, rhonchi or wheezes noted. No increased work of breathing, no retractions or nasal flaring. Abdomen/GI: Soft, non-tender, with normal bowel sounds. No distension or tympany. No guarding or rebound. No evidence of tenderness throughout. Back: No spinal tenderness. No costovertebral tenderness. Full range of motion. Skin: Warm, dry with normal turgor. Normal color with no rashes, no lesions, and no evidence of cellulitis. MS/ Extremity: Pulses equal, no cyanosis. Neurovascular intact. Full, normal range of motion. Neuro: Awake and alert, GCS 15, oriented to person, place, time, and situation. Cranial nerves II-XII grossly intact. Motor strength 5/5 in all extremities. Sensory grossly intact. Cerebellar exam normal. Normal gait. 02:25 Constitutional: The patient appears alert, awake. 02:26 ECG was reviewed by the Attending Physician. Vital Signs: 00:22 BP 230 / 81; Pulse 75; Resp 18; Temp 97.9; Pulse Ox 97% on R/A; Weight 73.94 kg; Height aa1 5 ft. 8 in. (172.72 cm); Pain 6/10; 00:35 BP 186 / 85; Pulse 72; Resp 23; Pulse Ox 99% on R/A; tl2 01:29 BP 176 / 85; Pulse 66; Resp 19; Pulse Ox 98% on R/A; tl2 01:49 BP 177 / 79; Pulse 63; Resp 20; Pulse Ox 98% on R/A; tl2 02:57 BP 176 / 82; Pulse 66; Resp 13; Pulse Ox 98% on R/A; tl2 00:22 Body Mass Index 24.78 (73.94 kg, 172.72 cm) aa1 MDM: 00:56 Patient medically screened. 02:25 Data reviewed: vital signs, nurses notes. Response to treatment: the patient's symptoms gs have markedly improved after treatment, and as a result, I will discharge patient. 05/22 00:47 Order name: Basic Metabolic Panel; Complete Time: 02:08 tl2 05/22 00:47 Order name: CBC with Diff; Complete Time: 02:08 tl2 05/22 00:47 Order name: LFT's; Complete Time: 02:08 tl2 05/22 00:47 Order name: Magnesium; Complete Time: 02:08 tl2 05/22 00:47 Order name: NT PRO-BNP; Complete Time: 02:08 tl2 05/22 00:47 Order name: PT-INR; Complete Time: 02:08 tl2 05/22 00:47 Order name: Troponin (emerg Dept Use Only); Complete Time: 02:08 tl2 05/22 00:47 Order name: XRAY Chest (1 view) tl2 05/22 02:28 Interpretation: No acute disease. 05/22 00:47 Order name: EKG; Complete Time: 00:48 tl2 05/22 00:47 Order name: Cardiac monitoring; Complete Time: 00:48 tl2 05/22 00:47 Order name: EKG - Nurse/Tech; Complete Time: 00:48 tl2 05/22 00:47 Order name: IV Saline Lock; Complete Time: 00:48 tl2 05/22 00:47 Order name: Labs collected and sent; Complete Time: 00:48 tl2 05/22 00:47 Order name: O2 Per Protocol; Complete Time: 00:48 tl2 05/22 00:47 Order name: O2 Sat Monitoring; Complete Time: 00:48 tl2 EC:26 Rate is 68 beats/min. Rhythm is regular. KS interval is normal. QRS interval is normal. QT interval is normal. T waves are Normal. No ST changes noted. Clinical impression: NSR w/ Non-specific ST/T Changes. Interpreted by me. Administered Medications: No medications were administered Disposition: 05/22/18 02:26 Discharged to Home. Impression: Essential (primary) hypertension. - Condition is Stable. - Discharge Instructions: Hypertension, Managing Your Hypertension. - Medication Reconciliation Form, Thank You Letter, Antibiotic Education, Prescription Opioid Use form. - Follow up: Private Physician; When: 2 - 3 days; Reason: Re-evaluation by your physician. Signatures: Dispatcher [employer] EDMS Elly Red RN RN aa1 Aida Pool RN RN tl2 Munir Ba MD MD Corrections: (The following items were deleted from the chart) 03:03 02:26 05/22/2018 02:26 Discharged to Home. Impression: Essential (primary) tl2 hypertension. Condition is Stable. Forms are Medication Reconciliation Form, Thank You Letter, Antibiotic Education, Prescription Opioid Use. Follow up: Private Physician; When: 2 - 3 days; Reason: Re-evaluation by your physician. gs
[2018-05-22 05:40] VITALS: TEMP 97.9
[2018-05-22 05:43] VITALS: O2SAT 98
[2018-05-22 05:45] VITALS: BP 176/82
--- NOTE | 2018-05-22 08:26 | RAD REPORT ---
EXAM DESCRIPTION: Iain Single View05/22/2018 1:11 am CLINICAL HISTORY: Hypertension COMPARISON: 2017 FINDINGS: The lungs appear clear of acute infiltrate. The heart is normal size IMPRESSION: No acute abnormalities displayed
--- NOTE | 2018-05-22 12:34 | EKG ---
Test Date: 2018-05-22 Test Time: 00:45:38 Renal Dialysis Technician: [place] MEASUREMENT RESULTS: Intervals: Rate: 68 FL: 128 QRSD: 78 QT: 404 QTc: 429 [place]: P: 46 FL: 128 QRS: 17 T: 72 INTERPRETIVE STATEMENTS: Normal sinus rhythm with sinus arrhythmia Junctional ST depression, probably normal Borderline ECG Compared to ECG 09/11/2017 13:05:26 ST (T wave) deviation now present Electronically Signed On 05-22-18 12:32:44 [employer] WORKER by Shakir Diaz
== END 2018-05-22 03:03 | disposition home or self-care (01) ==
LOC: ER 00:10
DX: I10 Essential (primary) hypertension (principal); F41.9 Anxiety disorder, unspecified; Z79.82 Long term (current) use of aspirin; Z88.0 Allergy status to penicillin; Z88.2 Allergy status to sulfonamides; Z88.3 Allergy status to other anti-infective agents; Z88.5 Allergy status to narcotic agent; Z91.040 Latex allergy status
CPT/HCPCS: 36415; 71045; 80048; 80076; 83735; 83880; 84484; 85025; 85610; 93005; 99284